=== PATIENT | female | born 1940 | race African-American/Black ===

== ENCOUNTER 2016-11-04 22:58 | Emergency (ER) | payer BC, OTHER ==
[2016-11-04 17:18] LABS: BASOPHILS 0.4 %; BASOPHILS ABSOLUTE 0.02 10/3/uL (0.0-0.16); EOSINOPHILS 0.8 %; EOSINOPHILS ABSOLUTE 0.04 10/3/uL (0.0-0.53); HEMOGLOBIN 12.6 g/dL (12.0-16.0); IMMATURE GRANULOCYTES 0.2 %; IMMATURE GRANULOCYTES ABSOLUTE 0.01 10/3/uL (0.0-0.11); LYMPHOCYTES 25.1 %; LYMPHOCYTES ABSOLUTE 1.26 10/3/uL (0.67-4.30); MEAN CORPUS HGB CONC 32.3 g/dL (32.0-36.0); MEAN CORPUSCULAR HEMOGLOB 31.1 pg (26.0-34.0); MEAN CORPUSCULAR VOLUME 96.3 fL (80-100); MEAN PLATELET VOLUME 8.9 fL (9.2-13.0); MONOCYTES 5.4 %; MONOCYTES ABSOLUTE 0.27 10/3/uL (0.21-1.20); NEUTROPHILS 68.1 %; NEUTROPHILS ABSOLUTE 3.42 10/3/uL (2.02-8.40); PLATELET COUNT 252 10/3/uL (150-400); RBC DISTRIBUTION WIDTH 14.1 % (12.0-16.0); RED CELL COUNT 4.05 10/6/uL (4.0-5.6)
[2016-11-04 17:20] LABS: ER CBC TAT 0 Hrs 07 Mins; MANUAL DIFF NO %
[2016-11-04 17:32] LABS: PARTIAL THROMBO TIME 26.9 SEC (22.5-37.2); PROTIME (NOT ORD) 13.2 SEC (12.0-14.5)
[2016-11-04 17:32] LABS: ASCORBIC ACID (UR NOT ORDER) NEG (NEG); BILIRUBIN, URINE NEGATIVE (NEG); ER URINALYSIS TAT 0 Hrs 13 Mins; KETONE, URINE NEGATIVE (NEG); LEUKOCYTE ESTERASE(NOT OR LARGE (NEG); NITRITE (URINE) NEG (NEG); WBC (NOT ORDERED) (RFLEX) 6 (0-5)
[2016-11-04 17:36] LABS: BUN (BLOOD UREA NITROGEN) 18 MG/DL (6-23); CALCIUM, SERUM 8.8 MG/DL (8.5-10.4); CHEST PAIN PROFILE TAT 0 Hrs 23 Mins; CHLORIDE, SERUM 107 MMOL/L (96-112); CO2 (CARBON DIOXIDE) 27 MMOL/L (24-34); CREATININE 0.71 MG/DL (0.55-1.02); GFR AFRICAN AMERICAN 95 ML/MIN (>=60); GFR NON AFRICAN AMERICAN 82 ML/MIN (>=60); POTASSIUM, SERUM 3.5 MMOL/L (3.5-5.3); SODIUM, SERUM 142 MMOL/L (135-148); TROPONIN I <0.02 NG/ML (<0.05)
[2016-11-04 17:37] LABS: GLUCOSE, SERUM 71 MG/DL (60-99)
[~2016-11-04 22:58] MED LIST: ALA-CORT1 % TOP; ARICEPT10 MG PO; BELLADONNA XX; CALTRAT600 PO; CRANBERRY500 MG OR; FISH OIL OTC PO; FISH-EPA1000 MG PO; GARLIC OTC PO; GARLIFE OR; HALF81 PO; KCL; LEVOTHYROXIN25 MCG PO; LORT7 PO; LORTAB 5 PO; MAG OXIDE250 MG PO; MCZ25 PO; MULTIPLE VIT PO; NASONEX NAS; NEUR100 PO; NEXIUM40 PO; PCET PO; PERCOCET 10/3251 TAB PO; PLAVIX PO; PR25 PO; PROZAC40 MG PO; SINGULAIR1 PO; SOMATAB PO; UNABLE TO RECALL; V5 PO; VITAMIN D1000 UNI1 PO; VITE PO; VITE1000 PO; VITS/HERBS; ZOCOR10 PO; ZOCOR20 PO; ZOCOR40 PO
[2017-03-23] MEDS ORDERED: NEXIUM40 PO (15:49)
== END 2016-11-04 23:37 | disposition home or self-care (01) ==
LOC: ER 22:58
PROVIDERS: Emergency Medicine
DX: N39.0 Urinary tract infection, site not specified (principal); R42 Dizziness and giddiness; Z88.5 Allergy status to narcotic agent; Z91.030 Bee allergy status; Z88.2 Allergy status to sulfonamides; Z88.6 Allergy status to analgesic agent; Z88.8 Allergy status to other drugs, medicaments and biological substances; Z79.82 Long term (current) use of aspirin; Z79.899 Other long term (current) drug therapy
CPT/HCPCS: 71020; 80048; 81001; 83735; 84484; 85025; 85610; 85730; 87086; 96372; 99285; A9270-GY